=== PATIENT | female | born 1985 | race African-American/Black ===

== ENCOUNTER 2021-10-16 13:16 | Inpatient (IN) ==
[2021-10-16] MEDS ORDERED: Acetaminophen IV 1,000 MG/100 ML BAG IVPB ONE (13:52)
[2021-10-16] MEDS ORDERED: 0.9 % Sodium Chloride 1,000 ML IVC ONE (13:53)
[2021-10-16] MEDS ORDERED: Iopamidol - 370 500 ML MLS IVP ONE (14:14)
[2021-10-16] MEDS ORDERED: Vancomycin 2,000 MG/520 ML IV.SOLN IVPB ONE (14:15)
[2021-10-16] MEDS ORDERED: cefTRIAXone 1,000 MG in Water for inj. (sterile) 10 ML IVP ONE ×2 (14:15→18:02)
[2021-10-16 15:00] LABS: Basophils % 0.2 %; Eosinophils # 0.1 K/mcL (0.0-0.6); Eosinophils % 0.6 %; Hematocrit 34.9 % (35.3-44.9); Hemoglobin 11.3 g/dL (11.5-15.4); Lymphocytes # 1.5 K/mcL (0.6-4.6); Lymphocytes % 8.5 %; Mean Corpuscular HGB Conc 32.4 g/dL (31.6-35.5); Mean Corpuscular Hemoglobin 28.9 pg (28.0-33.3); Mean Corpuscular Volume 89.3 fL (83.0-100.0); Mean Platelet Volume 9.4 fL (9.4-12.4); Monocytes # 1.1 K/mcL (0.0-1.3); Monocytes % 6.5 %; Neutrophils # 14.5 K/mcL (1.6-8.9); Platelet Count 394 K/mcL (140-400); Red Blood Count 3.91 M/mcL (3.82-4.97); Red Cell Distribution Width 13.4 % (11.5-14.5); Segmented Neutrophils % 83.2 %; White Blood Count 17.4 K/mcL (4.3-11.1)
[2021-10-16 15:08] LABS: INR 1.5; Prothrombin Time 16.2 Seconds (9.4-12.1)
[2021-10-16 15:11] LABS: Activated Partial Thrombo Time 35.3 Seconds (26.0-36.0)
[2021-10-16 15:21] LABS: Alanine Aminotransferase 31 Units/L (7-52); Albumin 3.4 g/dL (3.5-5.7); Albumin/Globulin Ratio 0.9 (1.1-2.2); Alkaline Phosphatase 131 Units/L (34-104); Aspartate Amino Transferase 31 Units/L (13-39); BUN/Creatinine Ratio 16 (6-26); Bilirubin,Direct 0.5 mg/dL (0.0-0.2); Bilirubin,Indirect 0.9 mg/dL (0.0-1.0); Bilirubin,Total 1.4 mg/dL (0.3-1.0); Blood Urea Nitrogen 13 mg/dL (6-20); Calcium 8.9 mg/dL (8.6-10.3); Carbon Dioxide 23 mEq/L (23-29); Chloride 100 mEq/L (98-107); Globulin 3.7 g/dL (2.4-3.5); Glucose 105 mg/dL (70-105); Magnesium 1.7 mg/dL (1.6-2.6); Osmolality,Calculated 272 (280-300); Phosphorous 1.8 mg/dL (2.7-4.5); Potassium 3.6 mEq/L (3.5-5.1); Sodium 131 mEq/L (136-145); Total Protein 7.1 g/dL (6.4-8.9); Troponin I < 0.03 ng/mL (< 0.04)
[2021-10-16 15:24] LABS: Mucus,Urine Moderate per lpf (None-Few); RBC,Urine 50-100 per hpf (0-3); Renal Epithelial Cells,Urine Few per hpf (None-Few); Squamous Epithelial Cell,Urine Many per hpf (None-Few); Transitional Epi Cells,Urine Few per hpf (None-Few); WBC,Urine 50-100 per hpf (0-3)
[2021-10-16 15:25] LABS: Bilirubin,Urine Small (Negative); Clarity,Urine Turbid (Clear); Glucose,Urine (UA) Normal (Normal)
[2021-10-16 15:26] LABS: Blood,Urine Small (Negative); Color,Urine LIGHT ORANGE (Yellow); Ketones,Urine Negative (Negative); Specific Gravity,Urine 1.029 (1.010-1.025)
[2021-10-16 15:28] LABS: Leukocyte Esterase,Urine Large (Negative); Nitrite,Urine Negative (Negative); Protein,Urine 100 mg/dL (Neg-Trace)
[2021-10-16 15:42] LABS: Influenza A PCR Negative (Negative); Influenza B PCR Negative (Negative); Resp. Syncytial Virus PCR Negative (Negative)
[2021-10-16 15:45] LABS: SARS-CoV-2 by PCR (In House) Positive (Negative)
[2021-10-16] MEDS ORDERED: Clindamycin 600 MG/50 ML 600 MG/50 ML IV.SOLN IVPB ONE (17:02)
[2021-10-16] MEDS ORDERED: *HR* HYDROmorphone (PF) 1 MG/ML SYRINGE IVP ONE ×2 (17:26→22:24)
[2021-10-16] MEDS ORDERED: Lidocaine/EPI 1:200k 1% PF 10 ML VIAL INFILT ONE (17:35)
[2021-10-16] MEDS ORDERED: Ondansetron ODT 4 MG TAB.RAPDIS SL PRN (17:54)
[2021-10-16] MEDS ORDERED: Naloxone 0.4 MG/ML INJ IVP PRN (17:54)
[2021-10-16] MEDS ORDERED: CefTRIAXone 1,000 MG VIAL IM ONE (17:54)
[2021-10-16] MEDS: *HR* Enoxaparin 40 MG/0.4 ML SYRINGE SQ SCH (20:19)
[2021-10-17] MEDS: Vancomycin 2,000 MG/520 ML IV.SOLN IVPB SCH ×2 (02:56→15:19)
[2021-10-17 02:59] LABS: Basophils % 0.3 %; Eosinophils # 0.2 K/mcL (0.0-0.6); Eosinophils % 1.2 %; Hematocrit 33.5 % (35.3-44.9); Hemoglobin 10.7 g/dL (11.5-15.4); Immature Granulocytes % 1.7 % (0-4); Lymphocytes # 1.3 K/mcL (0.6-4.6); Lymphocytes % 8.8 %; Mean Corpuscular HGB Conc 31.9 g/dL (31.6-35.5); Mean Corpuscular Hemoglobin 28.8 pg (28.0-33.3); Mean Corpuscular Volume 90.3 fL (83.0-100.0); Mean Platelet Volume 9.4 fL (9.4-12.4); Monocytes # 1.1 K/mcL (0.0-1.3); Neutrophils # 12.2 K/mcL (1.6-8.9); Platelet Count 399 K/mcL (140-400); Red Blood Count 3.71 M/mcL (3.82-4.97); Red Cell Distribution Width 13.4 % (11.5-14.5); White Blood Count 15.1 K/mcL (4.3-11.1)
[2021-10-17 03:08] LABS: Estimated Average Glucose 108 mg/dl; Hemoglobin A1C 5.4 %
[2021-10-17 03:17] LABS: BUN/Creatinine Ratio 15 (6-26); Blood Urea Nitrogen 11 mg/dL (6-20); Calcium 8.5 mg/dL (8.6-10.3); Carbon Dioxide 23 mEq/L (23-29); Chloride 101 mEq/L (98-107); Glucose 128 mg/dL (70-105); Magnesium 1.8 mg/dL (1.6-2.6); Osmolality,Calculated 273 (280-300); Phosphorous 2.6 mg/dL (2.7-4.5); Potassium 3.6 mEq/L (3.5-5.1); Sodium 131 mEq/L (136-145)
[2021-10-17] MEDS ORDERED: *HR* HYDROmorphone (PF) 1 MG/ML SYRINGE IVP ONE (05:35)
[2021-10-17] MEDS: Propranolol LA (24 HR) 60 MG CAP.SA.24H PO SCH (09:08)
[2021-10-17] MEDS: cefTRIAXone 2,000 MG in 0.9 % Sodium Chloride 20 ML IVP SCH (09:09)
[2021-10-17] MEDS: *HR* Enoxaparin 40 MG/0.4 ML SYRINGE SQ SCH ×2 (09:09→20:11)
[2021-10-17] MEDS: Morphine Sulfate 2 MG/ML SYRINGE IVP PRN (15:18)
[2021-10-17] MEDS ORDERED: Ibuprofen 200 MG TABLET PO PRN (17:59)
[2021-10-17] MEDS: Acetaminophen 325 MG TABLET PO PRN (20:11)
[2021-10-18] MEDS: Vancomycin 2,000 MG/520 ML IV.SOLN IVPB SCH (02:23)
[2021-10-18 05:07] LABS: Basophils # 0.1 K/mcL (0.0-0.2); Basophils % 0.5 %; Eosinophils # 0.2 K/mcL (0.0-0.6); Eosinophils % 1.8 %; Hematocrit 33.4 % (35.3-44.9); Hemoglobin 10.5 g/dL (11.5-15.4); Immature Granulocytes % 1.8 % (0-4); Lymphocytes # 1.4 K/mcL (0.6-4.6); Lymphocytes % 10.5 %; Mean Corpuscular HGB Conc 31.4 g/dL (31.6-35.5); Mean Corpuscular Volume 92.3 fL (83.0-100.0); Mean Platelet Volume 9.3 fL (9.4-12.4); Monocytes # 1.1 K/mcL (0.0-1.3); Monocytes % 8.2 %; Neutrophils # 10.3 K/mcL (1.6-8.9); Platelet Count 390 K/mcL (140-400); Red Blood Count 3.62 M/mcL (3.82-4.97); Red Cell Distribution Width 13.6 % (11.5-14.5); Segmented Neutrophils % 77.2 %; White Blood Count 13.4 K/mcL (4.3-11.1)
[2021-10-18 05:23] LABS: BUN/Creatinine Ratio 13 (6-26); Blood Urea Nitrogen 10 mg/dL (6-20); Calcium 8.5 mg/dL (8.6-10.3); Carbon Dioxide 24 mEq/L (23-29); Chloride 101 mEq/L (98-107); Glucose 92 mg/dL (70-105); Osmolality,Calculated 275 (280-300); Potassium 3.8 mEq/L (3.5-5.1); Sodium 133 mEq/L (136-145)
[2021-10-18] MEDS: Morphine Sulfate 2 MG/ML SYRINGE IVP PRN (05:27)
[2021-10-18] MEDS ORDERED: Vancomycin 1,500 MG/265 ML IV.SOLN IVPB SCH (06:00)
[2021-10-18] MEDS: *HR* Enoxaparin 40 MG/0.4 ML SYRINGE SQ SCH ×2 (09:21→21:22)
[2021-10-18] MEDS: Propranolol LA (24 HR) 60 MG CAP.SA.24H PO SCH (09:21)
[2021-10-18] MEDS: cefTRIAXone 2,000 MG in 0.9 % Sodium Chloride 20 ML IVP SCH (09:22)
[2021-10-18 09:54] LABS: Phosphorous 3.5 mg/dL (2.7-4.5)
[2021-10-18] MEDS ORDERED: *HR* HYDROmorphone (PF) 1 MG/ML SYRINGE IVP ONE (09:59)
[2021-10-18] MEDS ORDERED: Morphine Sulfate 2 MG/ML SYRINGE IVP PRN (14:07)
[2021-10-18] MEDS ORDERED: Iopamidol - 370 500 ML MLS IVP ONE (14:21)
[2021-10-18] MEDS ORDERED: *HR* OxyCODONE Immed Rel 5 MG TABLET PO PRN (14:23)
[2021-10-18] MEDS: Acetaminophen 325 MG TABLET PO PRN (14:38)
[2021-10-18] MEDS: Vancomycin 1,500 MG/265 ML IV.SOLN IVPB SCH (22:34)
[2021-10-18] MEDS: *HR* OxyCODONE Immed Rel 5 MG TABLET PO PRN (23:10)
[2021-10-19] MEDS: Vancomycin 1,500 MG/265 ML IV.SOLN IVPB SCH ×3 (03:58→21:25)
[2021-10-19] MEDS: Propranolol LA (24 HR) 60 MG CAP.SA.24H PO SCH (10:02)
[2021-10-19] MEDS: *HR* Enoxaparin 40 MG/0.4 ML SYRINGE SQ SCH ×2 (10:02→21:25)
[2021-10-19] MEDS: cefTRIAXone 2,000 MG in 0.9 % Sodium Chloride 20 ML IVP SCH (10:03)
[2021-10-19] MEDS: Acetaminophen 325 MG TABLET PO PRN (10:03)
[2021-10-19 14:06] LABS: Basophils # 0.1 K/mcL (0.0-0.2); Basophils % 0.8 %; Eosinophils # 0.3 K/mcL (0.0-0.6); Eosinophils % 2.7 %; Hematocrit 33.2 % (35.3-44.9); Hemoglobin 10.3 g/dL (11.5-15.4); Immature Granulocytes % 2.9 % (0-4); Lymphocytes # 1.3 K/mcL (0.6-4.6); Lymphocytes % 12.1 %; Mean Corpuscular Hemoglobin 28.4 pg (28.0-33.3); Mean Corpuscular Volume 91.5 fL (83.0-100.0); Mean Platelet Volume 8.9 fL (9.4-12.4); Monocytes # 0.8 K/mcL (0.0-1.3); Monocytes % 7.8 %; Neutrophils # 7.7 K/mcL (1.6-8.9); Platelet Count 470 K/mcL (140-400); Red Blood Count 3.63 M/mcL (3.82-4.97); Red Cell Distribution Width 13.5 % (11.5-14.5); Segmented Neutrophils % 73.7 %; White Blood Count 10.4 K/mcL (4.3-11.1)
[2021-10-19 14:10] LABS: INR 1.4; Prothrombin Time 15.6 Seconds (9.4-12.1)
[2021-10-19 14:13] LABS: Activated Partial Thrombo Time 35.9 Seconds (26.0-36.0)
[2021-10-19 14:26] LABS: Phosphorous 3.5 mg/dL (2.7-4.5)
[2021-10-19 14:27] LABS: Calcium 8.7 mg/dL (8.6-10.3); Potassium 3.8 mEq/L (3.5-5.1)
[2021-10-19] MEDS ORDERED: *HR* Propofol 200 MG/20 ML VIAL IVP ONE (18:15)
[2021-10-19] MEDS ORDERED: Lidocaine -MPF 2% 5 ML VIAL ONE (18:15)
[2021-10-19] MEDS ORDERED: *HR* FentaNYL (PF) 100 MCG/2 ML VIAL ONE (18:15)
[2021-10-19] MEDS ORDERED: *HR* Succinylcholine 200 MG/10 ML VIAL IVP ONE (18:15)
[2021-10-19] MEDS ORDERED: Ondansetron 4 MG/2 ML VIAL ONE (18:15)
[2021-10-19] MEDS ORDERED: *HR* Rocuronium Bromide 50 MG/5 ML VIAL ONE (18:22)
[2021-10-19] MEDS: *HR* OxyCODONE Immed Rel 5 MG TABLET PO PRN (21:25)
[2021-10-20 03:59] LABS: Basophils # 0.1 K/mcL (0.0-0.2); Basophils % 0.4 %; Hematocrit 35.5 % (35.3-44.9); Hemoglobin 10.9 g/dL (11.5-15.4); Immature Granulocytes % 2.4 % (0-4); Lymphocytes # 0.8 K/mcL (0.6-4.6); Lymphocytes % 6.2 %; Mean Corpuscular HGB Conc 30.7 g/dL (31.6-35.5); Mean Corpuscular Hemoglobin 28.2 pg (28.0-33.3); Mean Platelet Volume 9.2 fL (9.4-12.4); Monocytes # 0.2 K/mcL (0.0-1.3); Monocytes % 1.7 %; Platelet Count 528 K/mcL (140-400); Red Blood Count 3.86 M/mcL (3.82-4.97); Red Cell Distribution Width 13.8 % (11.5-14.5); Segmented Neutrophils % 89.3 %; White Blood Count 12.3 K/mcL (4.3-11.1)
[2021-10-20 04:25] LABS: Calcium 8.8 mg/dL (8.6-10.3); Magnesium 2.1 mg/dL (1.6-2.6); Phosphorous 2.8 mg/dL (2.7-4.5); Potassium 4.3 mEq/L (3.5-5.1)
[2021-10-20] MEDS: Vancomycin 1,500 MG/265 ML IV.SOLN IVPB SCH ×2 (06:09→21:53)
[2021-10-20] MEDS: *HR* OxyCODONE Immed Rel 5 MG TABLET PO PRN ×3 (06:34→22:45)
[2021-10-20] MEDS: cefTRIAXone 2,000 MG in 0.9 % Sodium Chloride 20 ML IVP SCH (08:50)
[2021-10-20] MEDS: *HR* Enoxaparin 40 MG/0.4 ML SYRINGE SQ SCH ×2 (08:51→21:52)
[2021-10-20] MEDS: Propranolol LA (24 HR) 60 MG CAP.SA.24H PO SCH (08:51)
[2021-10-20] MEDS ORDERED: Vancomycin 1,500 MG/265 ML IV.SOLN IVPB SCH ×2 (09:00→17:00)
[2021-10-20] MEDS ORDERED: Vancomycin 2,000 MG/520 ML IV.SOLN IVPB SCH (09:00)
[2021-10-20] MEDS ORDERED: Ondansetron ODT 4 MG TAB.RAPDIS SL PRN (13:06)
[2021-10-20] MEDS ORDERED: Acetaminophen 325 MG TABLET PO PRN (13:06)
[2021-10-20] MEDS ORDERED: Naloxone 0.4 MG/ML INJ IVP PRN (13:06)
[2021-10-20] MEDS ORDERED: *HR* OxyCODONE Immed Rel 5 MG TABLET PO PRN (13:06)
[2021-10-21 02:56] LABS: Basophils # 0.1 K/mcL (0.0-0.2); Basophils % 0.5 %; Eosinophils % 0.1 %; Hematocrit 33.2 % (35.3-44.9); Hemoglobin 10.2 g/dL (11.5-15.4); Immature Granulocytes % 2.9 % (0-4); Lymphocytes # 1.6 K/mcL (0.6-4.6); Lymphocytes % 10.9 %; Mean Corpuscular HGB Conc 30.7 g/dL (31.6-35.5); Mean Corpuscular Hemoglobin 28.4 pg (28.0-33.3); Mean Corpuscular Volume 92.5 fL (83.0-100.0); Monocytes # 1.3 K/mcL (0.0-1.3); Monocytes % 8.9 %; Neutrophils # 10.9 K/mcL (1.6-8.9); Platelet Count 522 K/mcL (140-400); Red Blood Count 3.59 M/mcL (3.82-4.97); Red Cell Distribution Width 13.7 % (11.5-14.5); Segmented Neutrophils % 76.7 %; White Blood Count 14.2 K/mcL (4.3-11.1)
[2021-10-21 03:15] LABS: Calcium 8.8 mg/dL (8.6-10.3); Potassium 4.1 mEq/L (3.5-5.1)
[2021-10-21] MEDS: Propranolol LA (24 HR) 60 MG CAP.SA.24H PO SCH (10:34)
[2021-10-21] MEDS: *HR* Enoxaparin 40 MG/0.4 ML SYRINGE SQ SCH ×2 (10:35→20:25)
[2021-10-21] MEDS: cefTRIAXone 2,000 MG in 0.9 % Sodium Chloride 20 ML IVP SCH ×2 (10:36→11:32)
[2021-10-21] MEDS: *HR* OxyCODONE Immed Rel 5 MG TABLET PO PRN ×2 (10:45→17:47)
[2021-10-21] MEDS: Vancomycin 1,500 MG/265 ML IV.SOLN IVPB SCH ×2 (10:56→11:34)
[2021-10-21] MEDS: Cefdinir 300 MG CAPSULE PO SCH (20:25)
[2021-10-21] MEDS: Doxycycline 100 MG CAPSULE PO SCH (20:25)
[2021-10-22] MEDS: *HR* OxyCODONE Immed Rel 5 MG TABLET PO PRN ×3 (04:43→22:46)
[2021-10-22] MEDS: Propranolol LA (24 HR) 60 MG CAP.SA.24H PO SCH (10:22)
[2021-10-22] MEDS: Doxycycline 100 MG CAPSULE PO SCH ×2 (10:23→22:46)
[2021-10-22] MEDS: Cefdinir 300 MG CAPSULE PO SCH ×2 (10:23→22:46)
[2021-10-22] MEDS: *HR* Enoxaparin 40 MG/0.4 ML SYRINGE SQ SCH ×2 (10:24→22:47)
[2021-10-23] MEDS: *HR* Enoxaparin 40 MG/0.4 ML SYRINGE SQ SCH (09:24)
[2021-10-23] MEDS: Cefdinir 300 MG CAPSULE PO SCH ×2 (09:25→22:31)
[2021-10-23] MEDS: Propranolol LA (24 HR) 60 MG CAP.SA.24H PO SCH (09:25)
[2021-10-23] MEDS: Doxycycline 100 MG CAPSULE PO SCH ×2 (09:25→22:31)
[2021-10-23] MEDS: *HR* OxyCODONE Immed Rel 5 MG TABLET PO PRN (22:31)
[2021-10-24] MEDS: *HR* OxyCODONE Immed Rel 5 MG TABLET PO PRN ×3 (09:12→22:16)
[2021-10-24] MEDS: Propranolol LA (24 HR) 60 MG CAP.SA.24H PO SCH (09:12)
[2021-10-24] MEDS: Cefdinir 300 MG CAPSULE PO SCH ×2 (09:12→20:47)
[2021-10-24] MEDS: Doxycycline 100 MG CAPSULE PO SCH ×2 (09:12→20:47)
[2021-10-24] MEDS: *HR* Enoxaparin 40 MG/0.4 ML SYRINGE SQ SCH (09:16)
[2021-10-25] MEDS: Cefdinir 300 MG CAPSULE PO SCH (08:15)
[2021-10-25] MEDS: *HR* Enoxaparin 40 MG/0.4 ML SYRINGE SQ SCH (08:15)
[2021-10-25] MEDS: Doxycycline 100 MG CAPSULE PO SCH (08:15)
[2021-10-25] MEDS: Propranolol LA (24 HR) 60 MG CAP.SA.24H PO SCH (08:16)
[2021-10-25 08:44] VITALS: BP 126/47; PULSE 67; TEMP 98.4; O2SAT 98
== END 2021-10-25 16:00 | disposition home health service (06) | DRG 720 ==
LOC: EMEROOARM 13:16 → 3ANU 17:36 → SUATTDRO 17:36 → 3ANU 18:35 → 2NENU 19:36
PROVIDERS: ADMIT Pharmacist; ATTEND Internal Medicine